=== PATIENT | male | born 1955 | race Caucasian/White ===

== ENCOUNTER → 2019-04-16 | Outpatient (CLI) | payer BC ==
--- NOTE | 2019-04-17 04:26 | XR ---
EXAMINATION TYPE: XR KUB DATE OF EXAM: 04/16/2019 CLINICAL DATA: 63-year-old male lower abdominal pain, R10.30, PHH COMPARISON: None FINDINGS: Lung bases are clear. Supine imaging limited for assessment of free intraperitoneal air. No dilated small bowel. Scattered air and stool is present throughout the colon extending distally in to the rectum with mild overall stone burden. Multiple pelvic phleboliths. Degenerative changes lumbar spine. IMPRESSION: Mild stool burden. Nonspecific, nonobstructive bowel gas pattern.
== END | disposition home or self-care (01) ==
LOC: RADXRMAIN 17:03
PROVIDERS: ATTEND Internal Medicine
DX: R10.30 Lower abdominal pain, unspecified (principal); R19.5 Other fecal abnormalities
CPT/HCPCS: 74018

== ENCOUNTER 2020-07-29 10:17 | Inpatient (IN) | payer BC, MEDICARE ==
[2020-07-29] MEDS ORDERED: SODIUM CHLORIDE 0.9% 1,000 ML IV STA (10:33)
[2020-07-29] MEDS ORDERED: PANTOPRAZOLE 40 MG/10 ML VIAL IVP STA (10:33)
[2020-07-29] MEDS ORDERED: SODIUM CHLORIDE 0.9% 500 ML 500 ML IV STA (10:33)
--- NOTE | 2020-07-29 10:36 | ED ---
General Adult HPI - General Chief complaint: GI Bleed Stated complaint: blood in stool Time Seen by Provider: 07/29/20 10:23 Source: patient, RN notes reviewed Mode of arrival: wheelchair Limitations: no limitations - History of Present Illness Initial comments: Patient is a pleasant 65-year-old male presenting to the emergency department with GI hemorrhage. Onset of symptoms was this morning Before 10 AM. Patient had an episode where he felt like he needs to have diarrhea and had a large bloody stool. Patient then had a second one less than a half an hour after that. Patient drove to emergency department and now is bleeding further. Patient feels lightheaded. Patient has mild nausea and mild abdominal cramping. No history of similar symptoms previously. No blood thinners. No significant alcohol use. - Related Data Home Medications Medication Instructions Recorded Confirmed No Known Home Medications 07/29/20 07/29/20 Allergies Allergy/AdvReac Type Severity Reaction Status Date / Time No Known Allergies Allergy Verified 07/29/20 11:08 Review of Systems ROS Statement: Those systems with pertinent positive or pertinent negative responses have been documented in the HPI. ROS Other: All systems not noted in ROS Statement are negative. Constitutional: Denies: fever Eyes: Denies: eye pain ENT: Denies: ear pain Respiratory: Denies: cough Cardiovascular: Denies: chest pain Endocrine: Denies: fatigue Gastrointestinal: Reports: as per HPI, hematochezia Genitourinary: Denies: dysuria Musculoskeletal: Denies: back pain Skin: Denies: rash Neurological: Denies: weakness Past Medical History Past Medical History: Osteoarthritis (OA) Additional Past Medical History / Comment(s): Hx. of abscessed molar. C/O of pain in neck & L hand. History of Any Multi-Drug Resistant Organisms: None Reported Additional Past Surgical History / Comment(s): [place] teeth. Past Anesthesia/Blood Transfusion Reactions: No Reported Reaction Past Psychological History: No Psychological Hx Reported Smoking Status: Current every day smoker Past Alcohol Use History: None Reported Past Drug Use History: Marijuana - Past Family History Mother Family Medical History: No Reported History General Exam Limitations: no limitations General appearance: alert Head exam: Present: normocephalic Eye exam: Present: normal appearance ENT exam: Present: normal oropharynx Neck exam: Present: normal inspection Respiratory exam: Present: normal lung sounds bilaterally Cardiovascular Exam: Present: regular rate, normal rhythm GI/Abdominal exam: Present: soft. Absent: distended, tenderness Rectal exam: Present: bloody stool, other (Large amount of bloody stool active from the rectum. No obvious hemorrhoids or fissure.) exam: Present: normal inspection Extremities exam: Present: normal inspection Neurological exam: Present: alert Psychiatric exam: Present: normal affect, normal mood Skin exam: Present: diaphoretic Course Vital Signs 07/29/20 07/29/20 07/29/20 10:21 10:41 11:03 Temperature 97.8 F Pulse Rate 51 L 73 54 L Respiratory 18 20 20 Rate Blood Pressure 111/68 115/82 134/83 O2 Sat by Pulse 100 99 100 Oximetry - Reevaluation(s) Reevaluation #1: 07/29/20 10:35 Dr. Wynn has been paged. 07/29/20 10:43 Case was discussed with Dr. Wynn who will come evaluate patient and after his current surgical case. Patient reevaluated. 07/29/20 11:42 Patient was again reevaluated. Case was also discussed with Dr. Reddy, who will admit for ICU. EKG Findings - EKG Comments: EKG Findings:: Sed rate 3 with a rate of 51. WV 122. QRS 84. QT 394. QTC 363. Normal axis. Normal QRS. Borderline lateral ST depression. Medical Decision Making - Lab Data Result diagrams: 07/29/20 10:40 07/29/20 10:40 Lab Results 07/29/20 07/29/20 07/29/20 Range/Units 10:40 10:40 10:40 WBC 12.2 H (3.8-10.6) k/uL RBC 4.72 (4.30-5.90) m/uL Hgb 15.3 (13.0-17.5) gm/dL Hct 44.6 (39.0-53.0) % MCV 94.6 (80.0-100.0) fL MCH 32.3 (25.0-35.0) pg MCHC 34.2 (31.0-37.0) g/dL RDW 13.2 (11.5-15.5) % Plt Count 364 (150-450) k/uL MPV 7.0 Neutrophils % 74 % Lymphocytes % 17 % Monocytes % 5 % Eosinophils % 2 % Basophils % 1 % Neutrophils # 9.0 H (1.3-7.7) k/uL Lymphocytes # 2.1 (1.0-4.8) k/uL Monocytes # 0.6 (0-1.0) k/uL Eosinophils # 0.2 (0-0.7) k/uL Basophils # 0.1 (0-0.2) k/uL PT 10.4 (9.0-12.0) sec INR 1.0 (<1.2) APTT 20.5 L (22.0-30.0) sec Sodium 135 L (137-145) mmol/L Potassium 4.3 (3.5-5.1) mmol/L Chloride 100 (98-107) mmol/L Carbon Dioxide 21 L (22-30) mmol/L Anion Gap 14 mmol/L BUN 13 (9-20) mg/dL Creatinine 1.00 (0.66-1.25) mg/dL Est GFR (CKD-EPI)AfAm >90 (>60 ml/min/1.73 sqM) Est GFR (CKD-EPI)NonAf 78 (>60 ml/min/1.73 sqM) Glucose 123 H (74-99) mg/dL Calcium 9.8 (8.4-10.2) mg/dL Total Bilirubin 0.8 (0.2-1.3) mg/dL AST 25 (17-59) U/L ALT 16 (4-49) U/L Alkaline Phosphatase 63 (38-126) U/L Total Protein 7.6 (6.3-8.2) g/dL Albumin 4.7 (3.5-5.0) g/dL Coronavirus (PCR) (Not Detectd) 07/29/20 Range/Units 10:40 WBC (3.8-10.6) k/uL RBC (4.30-5.90) m/uL Hgb (13.0-17.5) gm/dL Hct (39.0-53.0) % MCV (80.0-100.0) fL MCH (25.0-35.0) pg MCHC (31.0-37.0) g/dL RDW (11.5-15.5) % Plt Count (150-450) k/uL MPV Neutrophils % % Lymphocytes % % Monocytes % % Eosinophils % % Basophils % % Neutrophils # (1.3-7.7) k/uL Lymphocytes # (1.0-4.8) k/uL Monocytes # (0-1.0) k/uL Eosinophils # (0-0.7) k/uL Basophils # (0-0.2) k/uL PT (9.0-12.0) sec INR (<1.2) APTT (22.0-30.0) sec Sodium (137-145) mmol/L Potassium (3.5-5.1) mmol/L Chloride (98-107) mmol/L Carbon Dioxide (22-30) mmol/L Anion Gap mmol/L BUN (9-20) mg/dL Creatinine (0.66-1.25) mg/dL Est GFR (CKD-EPI)AfAm (>60 ml/min/1.73 sqM) Est GFR (CKD-EPI)NonAf (>60 ml/min/1.73 sqM) Glucose (74-99) mg/dL Calcium (8.4-10.2) mg/dL Total Bilirubin (0.2-1.3) mg/dL AST (17-59) U/L ALT (4-49) U/L Alkaline Phosphatase (38-126) U/L Total Protein (6.3-8.2) g/dL Albumin (3.5-5.0) g/dL Coronavirus (PCR) Not Detected (Not Detectd) Disposition Clinical Impression: Lower GI hemorrhage Disposition: ADMITTED IP TO THIS [facility] Condition: Serious Is patient prescribed a controlled substance at d/c from ED?: No Referrals: None,Stated [Primary Care Provider] - 1-2 days Decision Time: 11:43
[2020-07-29 10:51] LABS: Basophils # (A) 0.1 k/uL (0-0.2); Basophils % (A) 1 %; Eosinophils # (A) 0.2 k/uL (0-0.7); Eosinophils % (A) 2 %; HCT 44.6 % (39.0-53.0); HGB 15.3 gm/dL (13.0-17.5); Lymphocytes # (A) 2.1 k/uL (1.0-4.8); Lymphocytes % (A) 17 %; MCH 32.3 pg (25.0-35.0); MCHC 34.2 g/dL (31.0-37.0); MCV 94.6 fL (80.0-100.0); Monocytes # (A) 0.6 k/uL (0-1.0); Monocytes % (A) 5 %; Neutrophils % (A) 74 %; Platelet Count 364 k/uL (150-450); RBC 4.72 m/uL (4.30-5.90); RDW 13.2 % (11.5-15.5); WBC 12.2 k/uL (3.8-10.6)
[2020-07-29 11:02] LABS: ALT 16 U/L (4-49); AST 25 U/L (17-59); African American GFR (CKD) >90 (>60 ml/min/1.73 sqM); Albumin 4.7 g/dL (3.5-5.0); Alkaline Phosphatase 63 U/L (38-126); Anion Gap 14 mmol/L; Blood Urea Nitrogen 13 mg/dL (9-20); Calcium 9.8 mg/dL (8.4-10.2); Carbon Dioxide 21 mmol/L (22-30); Chloride 100 mmol/L (98-107); Glucose 123 mg/dL (74-99); Non-African American GFR(CKD) 78 (>60 ml/min/1.73 sqM); Potassium 4.3 mmol/L (3.5-5.1); Sodium 135 mmol/L (137-145); Total Bilirubin 0.8 mg/dL (0.2-1.3); Total Protein 7.6 g/dL (6.3-8.2)
[2020-07-29 11:08] LABS: Prothrombin Time 10.4 sec (9.0-12.0)
[2020-07-29] MEDS ORDERED: PROPOFOL 10 MG/ML 20 ML VIAL IV ONE (11:10)
[2020-07-29 11:11] LABS: Partial Thromboplastin Time 20.5 sec (22.0-30.0)
[2020-07-29] MEDS ORDERED: NALOXONE 0.4 MG/ML 1 ML VIAL IV PRN (11:43)
[2020-07-29] MEDS: SODIUM CHLORIDE 0.9% 1,000 ML IV SCH (12:28)
[2020-07-29 13:00] LABS: Glucose,Whole Blood 98 mg/dL (75-99)
[2020-07-29] MEDS ORDERED: PEG 3350-NA SULF,BICARB,CL/KCL 4,000 ML BOTTLE PO ONE (14:30)
[2020-07-29 14:46] LABS: HCT 37.4 % (39.0-53.0); HGB 12.9 gm/dL (13.0-17.5); MCH 32.7 pg (25.0-35.0); MCHC 34.4 g/dL (31.0-37.0); Mean Platelet Volume 6.8; Platelet Count 248 k/uL (150-450); RBC 3.94 m/uL (4.30-5.90); RDW 13.6 % (11.5-15.5); WBC 16.7 k/uL (3.8-10.6)
[2020-07-29 14:50] LABS: ALT 13 U/L (4-49); AST 23 U/L (17-59); African American GFR (CKD) >90 (>60 ml/min/1.73 sqM); Albumin 3.9 g/dL (3.5-5.0); Alkaline Phosphatase 54 U/L (38-126); Anion Gap 7 mmol/L; Blood Urea Nitrogen 12 mg/dL (9-20); Calcium 8.8 mg/dL (8.4-10.2); Carbon Dioxide 23 mmol/L (22-30); Chloride 105 mmol/L (98-107); Glucose 98 mg/dL (74-99); Non-African American GFR(CKD) >90 (>60 ml/min/1.73 sqM); Potassium 4.4 mmol/L (3.5-5.1); Sodium 135 mmol/L (137-145); Total Bilirubin 0.6 mg/dL (0.2-1.3); Total Protein 6.5 g/dL (6.3-8.2)
--- NOTE | 2020-07-29 15:02 | P.GSHP ---
History of Present Illness H&P Date: 07/29/20 CHIEF COMPLAINT: Blood in stool HISTORY OF PRESENT ILLNESS: This is a 65-year-old male with a known history of nicotine dependence. He presented to the emergency room with evidence of GI bleed. He reports symptoms started around 10 AM. He felt like he was going to have a episode of diarrhea but had a large bloody stool. Patient then had a second one less than a half an hour after that. He drove himself to the emergency department. He had another 2 episodes of bleeding in the ER measuring and about a cup in size each. He has been having some lightheadedness. He denies being on any blood thinners. Denies any alcohol use. No prior history of GI bleed. Patient did have some mild abdominal cramping. Vitals are stable PAST MEDICAL HISTORY: See list. PAST SURGICAL HISTORY: See list. MEDICATIONS: See list. ALLERGIES: See list. SOCIAL HISTORY: No illicit drug use. REVIEW OF SYSTEMS: CONSTITUTIONAL: Denies fever or chills. HEENT: Denies blurred vision, vision changes, or eye pain. Denies hemoptysis CARDIOVASCULAR: Denies chest pain or pressure. RESPIRATORY: No shortness of breath. GASTROINTESTINAL: See HPI for pertinent findings HEMATOLOGIC: Denies bleeding disorders. GENITOURINARY: Denies any blood in urine or increased urinary frequency. SKIN: Denies pruitis. Denies rash. PHYSICAL EXAM: VITAL SIGNS: Reviewed GENERAL: Well-developed in no acute distress. HEENT: No sclera icterus. Extraocular movements grossly intact. Moist buccal mucosa. Head is atraumatic, normocephalic. No nasal drainage. ABDOMEN: Soft. Nondistended nontender NEUROLOGIC: Alert and oriented. Cranial nerves II through XII grossly intact. LABORATORY DATA: WBC 12.2 hemoglobin 15.3 platelets 364 creatinine 1.00 LFTs normal Covid negative IMAGING: ASSESSMENT: 1. Acute GI bleed with bright red blood per rectum PLAN: -Patient scheduled for colonoscopy tomorrow with Dr. Wynn -Start GoLYTELY prep -Nothing by mouth after midnight -Continue to monitor for any further signs or symptoms of bleeding -Continue to monitor hemoglobin -Continue with IV fluids -Patient admitted to the ICU -Critical care service consulted -Continue IV Protonix Physician Blending Technician note has been reviewed by physician. Signing provider agrees with the documented findings, assessment, and plan of care. Past Medical History Past Medical History: Osteoarthritis (OA) Additional Past Medical History / Comment(s): Hx. of abscessed molar. C/O of pain in neck & L hand. right neck removal of flavio tumor 2016 History of Any Multi-Drug Resistant Organisms: None Reported Additional Past Surgical History / Comment(s): [place] teeth. Past Anesthesia/Blood Transfusion Reactions: No Reported Reaction Past Psychological History: No Psychological Hx Reported Smoking Status: Current every day smoker Past Alcohol Use History: None Reported Additional Past Alcohol Use History / Comment(s): Smokes 1PPD x 40 yrs. Past Drug Use History: Marijuana Additional Drug Use History / Comment(s): Occas. smokes marijuana on the weekends. - Past Family History Mother Family Medical History: No Reported History Medications and Allergies Home Medications Medication Instructions Recorded Confirmed Type No Known Home Medications 07/29/20 07/29/20 History Allergies Allergy/AdvReac Type Severity Reaction Status Date / Time No Known Allergies Allergy Verified 07/29/20 11:08 Surgical - Exam Vital Signs Temp Pulse Resp BP Pulse Ox 97.8 F 51 L 18 111/68 100 07/29/20 10:21 07/29/20 10:21 07/29/20 10:21 07/29/20 10:21 07/29/20 10:21 Results - Labs 07/29/20 14:20 07/29/20 14:20 Abnormal Lab Results - Last 24 Hours (Table) 07/29/20 07/29/20 07/29/20 Range/Units 10:30 10:40 10:40 WBC 12.2 H (3.8-10.6) k/uL RBC (4.30-5.90) m/uL Hgb (13.0-17.5) gm/dL Hct (39.0-53.0) % Neutrophils # 9.0 H (1.3-7.7) k/uL APTT 20.5 L (22.0-30.0) sec Sodium (137-145) mmol/L Carbon Dioxide (22-30) mmol/L Glucose (74-99) mg/dL Crossmatch See Detail 07/29/20 07/29/20 07/29/20 Range/Units 10:40 14:20 14:20 WBC 16.7 H (3.8-10.6) k/uL RBC 3.94 L (4.30-5.90) m/uL Hgb 12.9 L (13.0-17.5) gm/dL Hct 37.4 L (39.0-53.0) % Neutrophils # (1.3-7.7) k/uL APTT (22.0-30.0) sec Sodium 135 L 135 L (137-145) mmol/L Carbon Dioxide 21 L (22-30) mmol/L Glucose 123 H (74-99) mg/dL Crossmatch Diabetes panel 07/29/20 07/29/20 Range/Units 10:40 14:20 Sodium 135 L 135 L (137-145) mmol/L Potassium 4.3 4.4 (3.5-5.1) mmol/L Chloride 100 105 (98-107) mmol/L Carbon Dioxide 21 L 23 (22-30) mmol/L BUN 13 12 (9-20) mg/dL Creatinine 1.00 0.85 (0.66-1.25) mg/dL Glucose 123 H 98 (74-99) mg/dL Calcium 9.8 8.8 (8.4-10.2) mg/dL AST 25 23 (17-59) U/L ALT 16 13 (4-49) U/L Alkaline Phosphatase 63 54 (38-126) U/L Total Protein 7.6 6.5 (6.3-8.2) g/dL Albumin 4.7 3.9 (3.5-5.0) g/dL Calcium panel 07/29/20 07/29/20 Range/Units 10:40 14:20 Calcium 9.8 8.8 (8.4-10.2) mg/dL Albumin 4.7 3.9 (3.5-5.0) g/dL Pituitary panel 07/29/20 07/29/20 Range/Units 10:40 14:20 Sodium 135 L 135 L (137-145) mmol/L Potassium 4.3 4.4 (3.5-5.1) mmol/L Chloride 100 105 (98-107) mmol/L Carbon Dioxide 21 L 23 (22-30) mmol/L BUN 13 12 (9-20) mg/dL Creatinine 1.00 0.85 (0.66-1.25) mg/dL Glucose 123 H 98 (74-99) mg/dL Calcium 9.8 8.8 (8.4-10.2) mg/dL Adrenal panel 07/29/20 07/29/20 Range/Units 10:40 14:20 Sodium 135 L 135 L (137-145) mmol/L Potassium 4.3 4.4 (3.5-5.1) mmol/L Chloride 100 105 (98-107) mmol/L Carbon Dioxide 21 L 23 (22-30) mmol/L BUN 13 12 (9-20) mg/dL Creatinine 1.00 0.85 (0.66-1.25) mg/dL Glucose 123 H 98 (74-99) mg/dL Calcium 9.8 8.8 (8.4-10.2) mg/dL Total Bilirubin 0.8 0.6 (0.2-1.3) mg/dL AST 25 23 (17-59) U/L ALT 16 13 (4-49) U/L Alkaline Phosphatase 63 54 (38-126) U/L Total Protein 7.6 6.5 (6.3-8.2) g/dL Albumin 4.7 3.9 (3.5-5.0) g/dL
--- NOTE | 2020-07-29 15:25 | P.CNPUL ---
History of Present Illness Consult date: 07/29/20 Requesting physician: Fazal Wynn Reason for consult: other Chief complaint: Lower gastrointestinal bleed. History of present illness: 65-year-old male who really doesn't see a doctor, and never has had a colonoscopy. He presents to the emergency room on 07/29/2020 at 10:17 AM complaining of bright red bleeding per rectum. He woke up this morning with some abdominal discomfort and just a feeling like he may have to have a bowel movement or and/or have diarrhea. When he did have a bowel movement, he noticed bright red blood filling the toilet bowl. Apparently it happened a second time and at that point, he decided to come to the emergency department. He has never had this before. While having the bowel movements, he felt lightheaded and dizzy and even on the way into the hospital he felt that way as well. In the emergency department, he was evaluated by Dr. Jaciel Méndez. When I spoke to Dr. Méndez, the patient had a very large bright red bowel movement in the emergency department, maybe 3 cups or so bright red blood. He was also a little diaphoretic in the emergency department and a bit hypotensive. Hence, Dr. Méndez called me and asked for an ICU bed. I granted his wish. The patient was admitted to Dr. Wynn. He apparently is going to have a colonoscopy in the morning. The patient doesn't go to doctors. Doesn't have any major medical problems as far as he knows. He has never had a colonoscopy. He does smoke cigarettes and marijuana. He denies alcohol intake. He has no ALLERGIES. He takes no medications at home. Review of Systems REVIEW OF SYSTEMS: CONSTITUTIONAL: Lightheaded and dizzy, a bit weak. NEUROLOGIC: [ Negative.] HEENT: [ Negative.] CARDIAC: [Negative.] PULMONARY: [Negative.] GI: Bright red bleeding per rectum, abdominal cramping. : [Negative.] RHEUMATOLOGIC: [ Negative.] IMMUNOLOGIC: [ Negative.] ENDOCRINE: [Negative. ] DERMATOLOGIC: [Negative.] Past Medical History Past Medical History: Osteoarthritis (OA) Additional Past Medical History / Comment(s): Hx. of abscessed molar. C/O of pain in neck & L hand. right neck removal of flavio tumor 2016 History of Any Multi-Drug Resistant Organisms: None Reported Additional Past Surgical History / Comment(s): [place] teeth. Past Anesthesia/Blood Transfusion Reactions: No Reported Reaction Past Psychological History: No Psychological Hx Reported Smoking Status: Current every day smoker Past Alcohol Use History: None Reported Additional Past Alcohol Use History / Comment(s): Smokes 1PPD x 40 yrs. Past Drug Use History: Marijuana Additional Drug Use History / Comment(s): Occas. smokes marijuana on the weekends. - Past Family History Mother Family Medical History: No Reported History Medications and Allergies Home Medications Medication Instructions Recorded Confirmed Type No Known Home Medications 07/29/20 07/29/20 History Allergies Allergy/AdvReac Type Severity Reaction Status Date / Time No Known Allergies Allergy Verified 07/29/20 11:08 Physical Exam Osteopathic Statement: *. No significant issues noted on an osteopathic structural exam other than those noted in the History and Physical/Consult. Vitals: Vital Signs Temp Pulse Resp BP Pulse Ox 07/29/20 13:10 57 L 20 97 07/29/20 13:00 98.4 F 80 23 152/90 97 07/29/20 12:37 98.1 F 07/29/20 12:25 74 18 149/81 98 07/29/20 11:03 54 L 20 134/83 100 07/29/20 10:41 73 20 115/82 99 07/29/20 10:21 97.8 F 51 L 18 111/68 100 Intake and Output 07/29/20 07/29/20 07/29/20 06:59 14:59 22:59 Intake Total 260 Output Total 0 Balance 260 Intake: Intake, IV Titration 260 Amount Sodium Chloride 0.9% 1, 260 000 ml @ 130 mls/hr IV . Q7H42M [facility] Rx#:[id number] Output: Urine 0 Other: Weight 86.183 kg No acute distress, oriented 3. Room air saturation 97%. HEENT examination is grossly unremarkable. Mucous membranes are moist. No oral lesions. Neck supple. Full range of motion. No adenopathy thyromegaly or neck vein distention. Cardiovascular examination reveals regular rhythm rate. S1-S2 normal. No S3 or S4. No discernible murmur noted. Heart rate 80 bpm. Lungs reveal clear breath sounds. Her sounds are equal bilaterally. No adventitious lung sounds including wheezes rhonchi or crackles. Abdomen soft and bowel sounds are heard. No masses or tenderness. Extremities are intact. No cyanosis clubbing or edema. Skin is without rash or lesion. Neurologic examination is brief but nonfocal. Results - Laboratory Findings CBC and BMP: 07/29/20 14:20 07/29/20 14:20 PT/INR, D-dimer PT 10.4 sec (9.0-12.0) 07/29/20 10:40 INR 1.0 (<1.2) 07/29/20 10:40 Abnormal lab findings: Abnormal Labs 07/29/20 07/29/20 07/29/20 10:30 10:40 10:40 WBC 12.2 H RBC Hgb Hct Neutrophils # 9.0 H APTT 20.5 L Sodium Carbon Dioxide Glucose Crossmatch See Detail 07/29/20 07/29/20 07/29/20 10:40 14:20 14:20 WBC 16.7 H RBC 3.94 L Hgb 12.9 L Hct 37.4 L Neutrophils # APTT Sodium 135 L 135 L Carbon Dioxide 21 L Glucose 123 H Crossmatch Assessment and Plan Assessment: Suspected lower gastrointestinal bleed, which may relate to diverticular disease, or angiodysplasia. Other etiologies include colitis, hemmorhoids and possibly cancer. Acute mild anemia, secondary to GI bleed. History of chronic tobacco use and nicotine addiction. History of chronic marijuana use. No prior history of colonoscopy. Plan: Plan dated 07/29/2020. The patient was seen by the nurse practitioner who works for Dr Wynn. They're planning to do a colonoscopy in the morning. That should hopefully discover the source of the bleeding. We will keep him in the ICU overnight and check his hemoglobin and hematocrit every 6 hours. The patient should eat nothing by mouth. I also offered him a nicotine patch should he start craving tobacco. Interestingly, the patient does not see any doctors. He doesn't take any medications. The patient has never had a colonoscopy. We will continue to follow make recommendations. Time with Patient: Greater than 30
[2020-07-29] MEDS ORDERED: LIDOCAINE 1% (10MG/ML) FOR IV START INTRADERMA PRN (17:21)
[2020-07-29] MEDS ORDERED: LACTATED RINGERS 1,000 ML IV SCH (17:30)
[2020-07-29 20:08] LABS: HCT 39.3 % (39.0-53.0); HGB 13.3 gm/dL (13.0-17.5); Hypochromasia Slight; MCH 32.3 pg (25.0-35.0); MCHC 33.8 g/dL (31.0-37.0); MCV 95.6 fL (80.0-100.0); Mean Platelet Volume 6.7; Platelet Count 258 k/uL (150-450); RBC 4.11 m/uL (4.30-5.90); RDW 13.8 % (11.5-15.5); WBC 11.4 k/uL (3.8-10.6)
[2020-07-30] MEDS: SODIUM CHLORIDE 0.9% 1,000 ML IV SCH ×3 (04:30→11:02)
[2020-07-30 04:32] LABS: Basophils # (A) 0.1 k/uL (0-0.2); Basophils % (A) 1 %; Eosinophils # (A) 0.2 k/uL (0-0.7); Eosinophils % (A) 2 %; HCT 33.6 % (39.0-53.0); HGB 11.8 gm/dL (13.0-17.5); Lymphocytes # (A) 1.9 k/uL (1.0-4.8); Lymphocytes % (A) 21 %; MCH 32.6 pg (25.0-35.0); MCHC 35.2 g/dL (31.0-37.0); MCV 92.6 fL (80.0-100.0); Mean Platelet Volume 6.8; Monocytes # (A) 0.4 k/uL (0-1.0); Monocytes % (A) 5 %; Neutrophils # (A) 6.3 k/uL (1.3-7.7); Neutrophils % (A) 70 %; Platelet Count 243 k/uL (150-450); RBC 3.63 m/uL (4.30-5.90); RDW 12.2 % (11.5-15.5); WBC 8.9 k/uL (3.8-10.6)
[2020-07-30 04:45] LABS: African American GFR (CKD) >90 (>60 ml/min/1.73 sqM); Anion Gap 7 mmol/L; Blood Urea Nitrogen 11 mg/dL (9-20); Calcium 8.6 mg/dL (8.4-10.2); Carbon Dioxide 23 mmol/L (22-30); Chloride 106 mmol/L (98-107); Glucose 90 mg/dL (74-99); Non-African American GFR(CKD) >90 (>60 ml/min/1.73 sqM); Potassium 4.1 mmol/L (3.5-5.1); Sodium 136 mmol/L (137-145)
--- NOTE | 2020-07-30 07:59 | P.PN ---
Subjective Progress Note Date: 07/30/20 Principal diagnosis: GI bleed. 65-year-old male who really doesn't see a doctor, and never has had a colonoscopy. He presents to the emergency room on 07/29/2020 at 10:17 AM comp laining of bright red bleeding per rectum. He woke up this morning with some abdominal discomfort and just a feeling like he may have to have a bowel movement or and/or have diarrhea. When he did have a bowel movement, he noticed bright red blood filling the toilet bowl. Apparently it happened a second time and at that point, he decided to come to the emergency department. He has never had this before. While having the bowel movements, he felt lightheaded and dizzy and even on the way into the hospital he felt that way as well. In the emergency department, he was evaluated by Dr. Jaciel Méndez. When I spoke to Dr. Méndez, the patient had a very large bright red bowel movement in the emergency department, maybe 3 cups or so bright red blood. He was also a little diaphoretic in the emergency department and a bit hypotensive. Hence, Dr. Méndez called me and asked for an ICU bed. I granted his wish. The patient was admitted to Dr. Wynn. He apparently is going to have a colonoscopy in the morning. The patient doesn't go to doctors. Doesn't have any major medical problems as far as he knows. He has never had a colonoscopy. He does smoke cigarettes and marijuana. He denies alcohol intake. He has no ALLERGIES. He takes no medications at home. Progress note dated 07/30/2020. 65-year-old male, seen yesterday in consultation. He was admitted with a lower GI bleed. He had bright red bleeding per rectum. The patient has never seen a doctor in many years. He's never had a colonoscopy. He is scheduled for colonoscopy today. He's not receiving any supplemental oxygen. The patient's getting saline at 130 mL an hour. The patient is stable through the night. Martell presley's labs show a white count of 8.9, hemoglobin 11.8, hematocrit 33.6, and a platelet count of 283,000. Sodium is 136, potassium is 4.1, chlorides 106, CO2 23, anion gap 7, BUN 11, and creatinine 0.8. Coronavirus testing was negative. Objective - Vital Signs Vital signs: Vital Signs Temp 98.4 F 07/30/20 04:00 Pulse 64 07/30/20 07:00 Resp 15 07/30/20 07:00 BP 114/76 07/30/20 07:00 Pulse Ox 95 07/30/20 07:00 Intake & Output 07/29/20 07/30/20 07/30/20 18:59 06:59 18:59 Intake Total 910 1560 130 Output Total 570 0 Balance 340 1560 130 Weight 86.183 kg 98.1 kg Intake: Intake, IV Titration 910 1560 130 Amount Sodium Chloride 0.9% 1, 910 1560 130 000 ml @ 130 mls/hr IV . [id number] [facility] Rx#:[id number] Output: Urine 570 0 Other: Voiding Method Urinal Urinal # Voids 1 1 # Bowel Movements 1 1 2 - Exam No acute distress, oriented 3. Room air saturation 97%. HEENT examination is grossly unremarkable. Mucous membranes are moist. No oral lesions. Neck supple. Full range of motion. No adenopathy thyromegaly or neck vein distention. Cardiovascular examination reveals regular rhythm rate. S1-S2 normal. No S3 or S4. No discernible murmur noted. Heart rate 64 bpm. Lungs reveal clear breath sounds. Her sounds are equal bilaterally. No adventitious lung sounds including wheezes rhonchi or crackles. Abdomen soft and bowel sounds are heard. No masses or tenderness. Extremities are intact. No cyanosis clubbing or edema. Skin is without rash or lesion. Neurologic examination is brief but nonfocal. - Labs CBC & Chem 7: 07/30/20 03:45 07/30/20 03:45 Labs: Abnormal Lab Results - Last 24 Hours (Table) 07/29/20 07/29/20 07/29/20 Range/Units 10:30 10:40 10:40 WBC 12.2 H (3.8-10.6) k/uL RBC (4.30-5.90) m/uL Hgb (13.0-17.5) gm/dL Hct (39.0-53.0) % Neutrophils # 9.0 H (1.3-7.7) k/uL APTT 20.5 L (22.0-30.0) sec Sodium (137-145) mmol/L Carbon Dioxide (22-30) mmol/L Glucose (74-99) mg/dL Crossmatch See Detail 07/29/20 07/29/20 07/29/20 Range/Units 10:40 14:20 14:20 WBC 16.7 H (3.8-10.6) k/uL RBC 3.94 L (4.30-5.90) m/uL Hgb 12.9 L (13.0-17.5) gm/dL Hct 37.4 L (39.0-53.0) % Neutrophils # (1.3-7.7) k/uL APTT (22.0-30.0) sec Sodium 135 L 135 L (137-145) mmol/L Carbon Dioxide 21 L (22-30) mmol/L Glucose 123 H (74-99) mg/dL Crossmatch 07/29/20 07/30/20 07/30/20 Range/Units 19:48 03:45 03:45 WBC 11.4 H (3.8-10.6) k/uL RBC 4.11 L 3.63 L (4.30-5.90) m/uL Hgb 11.8 L (13.0-17.5) gm/dL Hct 33.6 L (39.0-53.0) % Neutrophils # (1.3-7.7) k/uL APTT (22.0-30.0) sec Sodium 136 L (137-145) mmol/L Carbon Dioxide (22-30) mmol/L Glucose (74-99) mg/dL Crossmatch Assessment and Plan Assessment: Suspected lower gastrointestinal bleed, which may relate to diverticular disease, or angiodysplasia. Other etiologies include colitis, hemmorhoids and possibly cancer. Acute mild anemia, secondary to GI bleed. History of chronic tobacco use and nicotine addiction. History of chronic marijuana use. No prior history of colonoscopy. Anticipated colonoscopy, 07/30/2020. Plan: Plan dated 07/29/2020. The patient was seen by the nurse practitioner who works for Dr Wynn. Jose roblesy're planning to do a colonoscopy in the morning. That should hopefully discover the source of the bleeding. We will keep him in the ICU overnight and check his hemoglobin and hematocrit every 6 hours. The patient should eat nothing by mouth. I also offered him a nicotine patch should he start craving tobacco. Interestingly, the patient does not see any doctors. He doesn't take any medications. The patient has never had a colonoscopy. We will continue to follow make recommendations. Plan dated 07/30/2020. The patient is to have a colonoscopy today. The patient's hemoglobin was 11.8. The patient has been stable overnight. He is nothing by mouth. He denies any abdominal pain or abdominal discomfort. Hemodynamically, the patient has been stable. We will continue to follow. Prognosis is guarded. Time with Patient: Less than 30
[2020-07-30] MEDS ORDERED: PANTOPRAZOLE 40 MG/10 ML VIAL IV SCH ×2 (09:00)
[2020-07-30] MEDS ORDERED: PEG 3350-NA SULF,BICARB,CL/KCL 4,000 ML BOTTLE PO ONE (12:30)
[2020-07-30 13:19] VITALS: BP 185/92; PULSE 75; RESP 16; TEMP 97.6
[2020-07-30] MEDS ORDERED: IV FLUID CONTINUATION 1,000 ML IV ONE ×2 (13:31)
--- NOTE | 2020-07-30 13:49 | P.OP ---
Date of Procedure: 07/30/20 Preoperative Diagnosis: A GI bleed Postoperative Diagnosis: Severe diverticulosis of sigmoid and left colon Procedure(s) Performed: Colonoscopy Anesthesia: MAC Surgeon: Fazal Wynn Pathology: none sent Condition: stable Disposition: PACU Description of Procedure: The patient's placed on the endoscopy table lateral position. He received IV sedation. Digital rectal exam was performed. There was a few external hemorrhoids. Flexible colonoscope was then placed patient anus passed throughout the entire colon. The ileocecal valve was visualized. The cecum, ascending and transverse colon appeared normal. In the descending colon was a few scattered diverticula. In the right colon there was severe diverticulosis. There is no evidence of any diverticular bleeding. Scope summer back the rectum and this appeared normal. Scope withdrawn for patient. This resume the patient's GI bleed due to diverticulosis.
== END 2020-07-30 17:50 | disposition home or self-care (01) | DRG 379 ==
LOC: EC 10:17 → 2SICU 11:43 → 5NMEDONC 12:04 → 2SICU 12:08 → 5NMEDONC 07-30 13:07
PROVIDERS: ADMIT Surgery; ATTEND Surgery
PROC: 0DJD8ZZ Inspection of Lower Intestinal Tract, Via Natural or Artificial Opening Endoscopic (ICD-10-PCS; principal; 2020-07-30 08:00)
DX: K57.31 Diverticulosis of large intestine without perforation or abscess with bleeding (principal); K64.4 Residual hemorrhoidal skin tags; F17.210 Nicotine dependence, cigarettes, uncomplicated; Z20.822 Contact with and (suspected) exposure to COVID-19; M19.90 Unspecified osteoarthritis, unspecified site; I95.9 Hypotension, unspecified; D50.0 Iron deficiency anemia secondary to blood loss (chronic); Z98.890 Other specified postprocedural states
CPT/HCPCS: 36415; 45378; 80048; 80053; 85025; 85027; 85610; 85730; 86850; 86900; 86901; 86920; 87635; 93005; 96361; 96374; 99285

== ENCOUNTER → 2021-09-07 | Outpatient (CLI) | payer MEDICARE ==
--- NOTE | 2021-09-07 10:51 | XR ---
EXAMINATION TYPE: XR lumbar spine 3V, XR Hip Complete 2 views LT DATE OF EXAM: 09/07/2021 Comparison: None Clinical History: 66-year-old male M16.9 OA Findings: Lumbar spine: 5 lumbar type vertebral bodies. Large bridging endplate spur along the right lateral aspect of L2-L3. Mild multilevel degenerative disc disease with disc space narrowing, disc bulging, endplate spondylo sis. More moderate degenerative disc disease L4-L5 and L5-S1. Trace grade 1 retrolisthesis L1-L2. Hyp ertrophic facet arthropathy mid to lower lumbar spine. Degenerative subarticular sclerosis at the SI joints. Left hip: Mild degenerative change of the left hip with spurring at the femoral head neck junction. Hip joint s paces are relatively maintained at this time. No acute fracture, subluxation, or dislocation. Impression: 1. Lumbar spine: Moderate multilevel degenerative disc disease especially lower lumbar spine. Hypertr ophic facet arthropathy is also present. Degenerative trace grade 1 retrolisthesis L1-L2. No vertebra l compression collapse. 2. Left hip: Mild left hip OA. No acute osseous abnormality seen. Mild degenerative change of the shahzad ateral SI joints incidentally noted.
== END | disposition home or self-care (01) ==
LOC: RADXRMAIN 09:19
PROVIDERS: ATTEND Internal Medicine
DX: M51.36 Other intervertebral disc degeneration, lumbar region (principal); M47.816 Spondylosis without myelopathy or radiculopathy, lumbar region; M43.16 Spondylolisthesis, lumbar region; M16.12 Unilateral primary osteoarthritis, left hip; M46.1 Sacroiliitis, not elsewhere classified
CPT/HCPCS: 72100; 73502

== ENCOUNTER 2022-10-14 08:48 | Emergency (ER) | payer MEDICARE ==
--- NOTE | 2022-10-14 09:15 | ED ---
General Adult HPI - General Chief complaint: Extremity Injury, Lower Stated complaint: Leg Pain sent by Time Seen by Provider: 10/14/22 08:55 Source: patient, RN notes reviewed, old records reviewed Mode of arrival: ambulatory Limitations: no limitations - History of Present Illness Initial comments: This is a nontoxic-appearing 67-year-old male that presents to the emergency room ambulatory with complaints of intermittent left lower extremity pain. Patient states pain starts in his left groin and radiates down the leg. Sometimes lasting several hours. Patient states that he has had multiple tests including labs and imaging over the past year with no definitive diagnosis. Did see his primary care doctor yesterday who recommended he come to the emergency room to rule out DVT by ultrasound. Patient has a history of hypertension, osteoarthritis and is a daily smoker. -: year(s) (1) Location: left, lower extremity Radiation: distal Severity scale (1-10): 3 Quality: sharp Consistency: intermittent Worsens with: other (activity) Associated Symptoms: denies other symptoms Treatments Prior to Arrival: other (sent by PCP ) - Related Data Home Medications Medication Instructions Recorded Confirmed No Known Home Medications 07/29/20 07/29/20 Allergies Allergy/AdvReac Type Severity Reaction Status Date / Time No Known Allergies Allergy Verified 10/14/22 08:54 Review of Systems ROS Statement: Those systems with pertinent positive or pertinent negative responses have been documented in the HPI. ROS Other: All systems not noted in ROS Statement are negative. Past Medical History Past Medical History: Hyperlipidemia, Hypertension, Osteoarthritis (OA) Additional Past Medical History / Comment(s): Hx. of abscessed molar. C/O of pain in neck & L hand. right neck removal of flavio tumor 2016 History of Any Multi-Drug Resistant Organisms: None Reported Additional Past Surgical History / Comment(s): Barto teeth. Past Anesthesia/Blood Transfusion Reactions: No Reported Reaction Past Psychological History: No Psychological Hx Reported Smoking Status: Current every day smoker Past Alcohol Use History: None Reported Past Drug Use History: Marijuana - Past Family History Mother Family Medical History: No Reported History General Exam Limitations: no limitations General appearance: alert, in no apparent distress Head exam: Present: atraumatic Eye exam: Present: normal appearance. Absent: scleral icterus, conjunctival injection, periorbital swelling, periorbital tenderness Neck exam: Absent: meningismus Respiratory exam: Absent: respiratory distress, accessory muscle use Cardiovascular Exam: Present: regular rate GI/Abdominal exam: Present: soft. Absent: rigid Extremities exam: Present: full ROM, normal capillary refill. Absent: tenderness, pedal edema, calf tenderness Left Hip exam: Absent: tenderness, swelling, external rotation, internal rotation, shortening Upper Leg exam: Absent: tenderness, swelling Knee exam: Present: full ROM, full knee extension. Absent: tenderness, swelling, abrasion, laceration, ecchymosis, deformity, crepitus, dislocation, erythema, effusion Lower Leg exam: Present: full ROM. Absent: tenderness, swelling, erythema, palpable cord, Homans' sign Ankle exam: Present: full ROM. Absent: tenderness, swelling Foot/Toe exam: Present: normal inspection, full ROM. Absent: tenderness, swelling Neurovascular tendon exam: Present: no vascular compromise. Absent: pulse deficit, abnormal cap refill, extremity cold to touch, pallor, decreased fine/light touch, foot drop, significant pain with passive ROM of distal joint Neurological exam: Present: alert, oriented X3, normal gait Psychiatric exam: Present: normal affect, normal mood Skin exam: Present: warm, dry, normal color. Absent: cyanosis, diaphoretic, petechiae, pallor Course Vital Signs 10/14/22 10/14/22 08:52 10:27 Temperature 97.7 F 96.5 F L Pulse Rate 64 59 L Respiratory 20 18 Rate Blood Pressure 160/76 178/92 O2 Sat by Pulse 99 97 Oximetry Medical Decision Making - Medical Decision Making Patient sent by his primary care doctor for ultrasound to rule out DVT of the left leg. Patient states he's been having this pain intermittently for the past year . On physical exam there is no evidence of swelling. Pedal pulses are present bilaterally. Negative Homans sign. Neurovascularly intact. Patient had x-rays in August of last year of his left hip and lumbar spine showing mild left hip osteoarthritis with degenerative change bilateral SI joints. Moderate multilevel degenerative disc disease especially lower lumbar spine. Hypertrophic facet arthropathy is also present. Degenerative trace grade 1 retrolisthesis L1-L2. No vertebral compression collapse. On physical exam is no vascular compromise. Leg is pink warm and dry. No evidence of swelling. Sensation intact. Patient is ambulatory with steady gait. He denies any fevers. No trauma. Ultrasound today shows no DVT of the left lower extremity. We did discuss the possibility that this may be radiculopathy from his degenerative disc disease lumbar spine. Patient agreeable to discharge home to follow up with his primary care doctor for continuation of care. He was directed to quit smoking. Strict return parameters were discussed. Case discussed with Dr Méndez. Was pt. sent in by a medical professional or institution (GARRY Spencer, INFORMATION SYSTEMS COORDINATOR, urgent care, hospital, or snf...) When possible be specific @ -No Did you speak to anyone other than the patient for history (EMS, parent, family, police, friend...)? What history was obtained from this source @ -No Did you review nursing and triage notes (agree or disagree)? Why? @ -I reviewed and agree with nursing and triage notes Were old charts reviewed (outside hosp., previous admission, EMS record, old EKG, old radiological studies, urgent care reports/EKG's, snf records)? Report findings @ -yes as above Differential Diagnosis (chest pain, altered mental status, abdominal pain women, abdominal pain men, vaginal bleeding, weakness, fever, dyspnea, syncope, headache, dizziness, GI bleed, back pain, seizure, CVA, palpatations, mental health, musculoskeletal)? @ -DVT, intermittent claudication, radiculopathy, inguinal hernia EKG interpreted by me (3pts min.). @ -n/a X-rays interpreted by me (1pt min.). @ -None done CT interpreted by me (1pt min.). @ -None done U/S interpreted by me (1pt. min.). @ -no What testing was considered but not performed or refused? (CT, X-rays, U/S, labs)? Why? @ -None What meds were considered but not given or refused? Why? @ -None Did you discuss the management of the patient with other professionals (professionals i.e. GARRY Spencer, INFORMATION SYSTEMS COORDINATOR, lab, RT, psych nurse, social insurance specialist, duplicating machine operator, teacher, surface to air weapons officer, casework specialist)? Give summary @ -No Was smoking cessation discussed for >3mins.? @ -yes Was critical care preformed (if so, how long)? @ -No Were there social determinants of health that impacted care today? How? (Homelessness, low income, unemployed, alcoholism, drug addiction, transportation, low edu. Level, literacy, decrease access to med. care, nursing home, rehab)? @ -No Was there de-escalation of care discussed even if they declined (Discuss DNR or withdrawal of care, Hospice)? DNR status @ -No What co-morbidities impacted this encounter? (DM, HTN, Smoking, COPD, CAD, Cancer, CVA, ARF, Chemo, Hep., AIDS, mental health diagnosis, sleep apnea, morbid obesity)? @ -Hypertension, degenerative disc disease, osteoarthritis, smoking Was patient admitted / discharged? Hospital course, mention meds given and route, prescriptions, significant lab abnormalities, going to OR and other pertinent info. @ -Discharged Undiagnosed new problem with uncertain prognosis? @ -No Drug Therapy requiring intensive monitoring for toxicity (Heparin, Nitro, Insulin, Cardizem)? @ -No Were any procedures done? @ -No Diagnosis/symptom? @ -Chronic left leg pain Acute, or Chronic, or Acute on Chronic? @ -Chronic Uncomplicated (without systemic symptoms) or Complicated (systemic symptoms)? @ -Uncomplicated Side effects of treatment? @ -No Exacerbation, Progression, or Severe Exacerbation? @ -No Poses a threat to life or bodily function? How? (Chest pain, [place], [place], pneumonia, PE, COPD, DKA, ARF, appy, cholecystitis, CVA, Diverticulitis, Homicidal, Suicidal, threat to staff... and all critical care pts) @ -No Disposition Clinical Impression: Leg pain, left Disposition: HOME SELF-CARE Condition: Good Instructions (If sedation given, give patient instructions): How to Stop Smoking (ED) Additional Instructions: Follow-up with your primary care doctor within the next week. Stop smoking. Return with any new or concerning symptoms including discoloration of the leg, increased pain or swelling. Is patient prescribed a controlled substance at d/c from ED?: No Referrals: Dariel Izaguirre MD [Primary Care Provider] - 1-2 days Time of Disposition: 09:53
--- NOTE | 2022-10-14 09:49 | US ---
EXAMINATION TYPE: US venous doppler duplex LE LT DATE OF EXAM: 10/14/2022 9:43 AM COMPARISON: NONE CLINICAL INDICATION: Male, 67 years old with history of r/o dvt; Left groin pain that travels down th igh SIDE PERFORMED: Left TECHNIQUE: The lower extremity deep venous system is examined utilizing real time linear array sonog becka with graded compression, doppler sonography and color-flow sonography. VESSELS IMAGED: Common Femoral Vein Deep Femoral Vein Greater Saphenous Vein * Femoral Vein Popliteal Vein Small Saphenous Vein * Proximal Calf Veins (* superficial vessels) Grayscale, color doppler, spectral doppler imaging performed of the deep veins of the left lower extr emity. There is normal flow, compressibility, vascular waveforms. Left Leg: Appears negative for DVT IMPRESSION: No deep venous thrombosis of the left lower extremity.
[2022-10-14 10:29] VITALS: BP 178/92; PULSE 59; RESP 18; TEMP 96.5
== END 2022-10-14 10:29 | disposition home or self-care (01) ==
LOC: EC 08:48
DX: M79.605 Pain in left leg (principal); I10 Essential (primary) hypertension; F17.200 Nicotine dependence, unspecified, uncomplicated; F12.90 Cannabis use, unspecified, uncomplicated
CPT/HCPCS: 99284

== ENCOUNTER 2022-11-25 08:51 | Emergency (ER) | payer MEDICARE ==
[2022-11-25 09:00] VITALS: BP 177/71; PULSE 68; RESP 18; TEMP 98
[2022-11-25] MEDS ORDERED: SODIUM CHLORIDE 0.9% 1,000 ML IV STA (09:23)
--- NOTE | 2022-11-25 09:37 | ED ---
General Adult HPI - General Chief complaint: Recheck/Abnormal Lab/Rx Stated complaint: Recheck Time Seen by Provider: 11/25/22 09:02 Source: patient, RN notes reviewed, old records reviewed Mode of arrival: ambulatory Limitations: no limitations - History of Present Illness Initial comments: 7-year-old male with past medical history significant for PAT presenting to the ED today with chief complaint of left groin pain. Patient states that this has been ongoing for the past year and half. That pain is constant in nature and waxing and waning in severity. No alleviating or exacerbating factors. [place] with this is subjective weakness of the left leg. He had an ultrasound on 10/14/22. This was negative for DVT. Presenting today with a prescription for CT angio abdomen aorta with runoff. - Related Data Home Medications Medication Instructions Recorded Confirmed No Known Home Medications 07/29/20 07/29/20 Allergies Allergy/AdvReac Type Severity Reaction Status Date / Time No Known Allergies Allergy Verified 11/25/22 09:00 Review of Systems ROS Statement: Those systems with pertinent positive or pertinent negative responses have been documented in the HPI. ROS Other: All systems not noted in ROS Statement are negative. Past Medical History Past Medical History: Hyperlipidemia, Hypertension, Osteoarthritis (OA) Additional Past Medical History / Comment(s): Hx. of abscessed molar. C/O of pain in neck & L hand. right neck removal of flavio tumor 2016 History of Any Multi-Drug Resistant Organisms: None Reported Additional Past Surgical History / Comment(s): [place] teeth. Past Anesthesia/Blood Transfusion Reactions: No Reported Reaction Past Psychological History: No Psychological Hx Reported Smoking Status: Current every day smoker Past Alcohol Use History: None Reported Past Drug Use History: Marijuana - Past Family History Mother Family Medical History: No Reported History General Exam Limitations: no limitations General appearance: alert, in no apparent distress Head exam: Present: atraumatic, normocephalic Eye exam: Present: normal appearance Neck exam: Present: normal inspection Respiratory exam: Present: normal lung sounds bilaterally Cardiovascular Exam: Present: regular rate GI/Abdominal exam: Present: soft exam: Present: other (No tenderness to palpation in the left groin, no warmth, erythema, edema, or crepitus.) Neurological exam: Present: alert, oriented X3 Psychiatric exam: Present: normal affect, normal mood Skin exam: Present: warm, dry Course Vital Signs 11/25/22 08:56 Temperature 98 F Pulse Rate 68 Respiratory 18 Rate Blood Pressure 177/71 O2 Sat by Pulse 99 Oximetry - Reevaluation(s) Reevaluation #1: 11/25/22 10:20 10:10 patient upset. States that he does not know why he is getting IV fluids and why he is getting labs drawn. Thoroughly explained the reason as to why patient was having labs drawn and receive IV fluids. Despite this, patient states that he would like to leave. Discussed risks versus benefits of continuing/abstaining from treatment including and up to . Patient verbalized understanding. 11/25/22 10:32 Medical Decision Making - Medical Decision Making Was pt. sent in by a medical professional or institution (, [facility], [facility] PRESS OPERATOR, urgent care, hospital, or senior care...) When possible be specific @ -Dr. Izaguirre Did you speak to anyone other than the patient for history (EMS, parent, family, police, friend...)? What history was obtained from this source @ -No Did you review nursing and triage notes (agree or disagree)? Why? @ -I reviewed and agree with nursing and triage notes Were old charts reviewed (outside hosp., previous admission, EMS record, old EKG, old radiological studies, urgent care reports/EKG's, senior care records)? Report findings @ -Old charts reviewed showing entire unremarkable ultrasound the left groin Differential Diagnosis (chest pain, altered mental status, abdominal pain women, abdominal pain men, vaginal bleeding, weakness, fever, dyspnea, syncope, headache, dizziness, GI bleed, back pain, seizure, CVA, palpatations, mental health, musculoskeletal)? @ -not applicable EKG interpreted by me (3pts min.). @ -As above X-rays interpreted by me (1pt min.). @ -None done CT interpreted by me (1pt min.). @ -None done U/S interpreted by me (1pt. min.). @ -None done What testing was considered but not performed or refused? (CT, X-rays, U/S, labs)? Why? @ -CT angio abdomen with runoff What meds were considered but not given or refused? Why? @ -None Did you discuss the management of the patient with other professionals (professionals i.e. , PA, [employer] PRESS OPERATOR, lab, RT, psych nurse, long term care social worker, temporary help agency referral clerk, teacher, administrative officer, caseworker)? Give summary @ -No Was smoking cessation discussed for >3mins.? @ -No Was critical care preformed (if so, how long)? @ -No Were there social determinants of health that impacted care today? How? (Homelessness, low income, unemployed, alcoholism, drug addiction, transportation, low edu. Level, literacy, decrease access to med. care, penitentiary, rehab)? @ -No Was there de-escalation of care discussed even if they declined (Discuss DNR or withdrawal of care, Hospice)? DNR status @ -No What co-morbidities impacted this encounter? (DM, HTN, Smoking, COPD, CAD, Cancer, CVA, ARF, Chemo, Hep., AIDS, mental health diagnosis, sleep apnea, morbid obesity)? @ -Smoking Was patient admitted / discharged? Hospital course, mention meds given and route, prescriptions, significant lab abnormalities, going to OR and other pertinent info. @ -Patient became very upset. Not want to wait for completion of labs and received CT. Left AMA. Undiagnosed new problem with uncertain prognosis? @ -No Drug Therapy requiring intensive monitoring for toxicity (Heparin, Nitro, Insulin, Cardizem)? @ -No Were any procedures done? @ -No Diagnosis/symptom? @ -Left groin pain, PAD Acute, or Chronic, or Acute on Chronic? @ -Chronic Uncomplicated (without systemic symptoms) or Complicated (systemic symptoms)? @ -Uncomplicated Side effects of treatment? @ -No Exacerbation, Progression, or Severe Exacerbation? @ -No Poses a threat to life or bodily function? How? (Chest pain, [place], NH, pneumonia, PE, COPD, DKA, ARF, appy, cholecystitis, CVA, Diverticulitis, Homicidal, Suicidal, threat to staff... and all critical care pts) @ -No - Lab Data Result diagrams: 11/25/22 09:58 11/25/22 09:58 Lab Results 11/25/22 11/25/22 Range/Units 09:58 09:58 WBC 9.3 (3.8-10.6) k/uL RBC 4.33 (4.30-5.90) m/uL Hgb 14.1 (13.0-17.5) gm/dL Hct 40.4 (39.0-53.0) % MCV 93.4 (80.0-100.0) fL MCH 32.6 (25.0-35.0) pg MCHC 34.9 (31.0-37.0) g/dL RDW 12.5 (11.5-15.5) % Plt Count 281 (150-450) k/uL MPV 6.8 Neutrophils % 76 % Lymphocytes % 15 % Monocytes % 5 % Eosinophils % 2 % Basophils % 1 % Neutrophils # 7.0 (1.3-7.7) k/uL Lymphocytes # 1.4 (1.0-4.8) k/uL Monocytes # 0.4 (0-1.0) k/uL Eosinophils # 0.2 (0-0.7) k/uL Basophils # 0.0 (0-0.2) k/uL Sodium 133 L (137-145) mmol/L Potassium 4.4 (3.5-5.1) mmol/L Chloride 103 (98-107) mmol/L Carbon Dioxide 20 L (22-30) mmol/L Anion Gap 10 mmol/L BUN 18 (9-20) mg/dL Creatinine 0.98 (0.66-1.25) mg/dL Est GFR (CKD-EPI)AfAm >90 (>60 ml/min/1.73 sqM) Est GFR (CKD-EPI)NonAf 80 (>60 ml/min/1.73 sqM) Glucose 108 H (74-99) mg/dL Calcium 9.2 (8.4-10.2) mg/dL Total Bilirubin 0.7 (0.2-1.3) mg/dL AST 27 (17-59) U/L ALT 20 (4-49) U/L Alkaline Phosphatase 61 (38-126) U/L Total Protein 7.2 (6.3-8.2) g/dL Albumin 4.4 (3.5-5.0) g/dL Disposition Clinical Impression: Groin pain, chronic, left Disposition: LEFT AGAINST MEDICAL ADVICE Referrals: Dariel Izaguirre MD [Primary Care Provider] - 1-2 days Time of Disposition: 10:10
[2022-11-25 10:12] LABS: ALT 20 U/L (4-49); AST 27 U/L (17-59); African American GFR (CKD) >90 (>60 ml/min/1.73 sqM); Albumin 4.4 g/dL (3.5-5.0); Alkaline Phosphatase 61 U/L (38-126); Anion Gap 10 mmol/L; Blood Urea Nitrogen 18 mg/dL (9-20); Calcium 9.2 mg/dL (8.4-10.2); Carbon Dioxide 20 mmol/L (22-30); Chloride 103 mmol/L (98-107); Glucose 108 mg/dL (74-99); Non-African American GFR(CKD) 80 (>60 ml/min/1.73 sqM); Potassium 4.4 mmol/L (3.5-5.1); Sodium 133 mmol/L (137-145); Total Bilirubin 0.7 mg/dL (0.2-1.3); Total Protein 7.2 g/dL (6.3-8.2)
[2022-11-25 10:16] LABS: Basophils % (A) 1 %; Eosinophils # (A) 0.2 k/uL (0-0.7); Eosinophils % (A) 2 %; HCT 40.4 % (39.0-53.0); HGB 14.1 gm/dL (13.0-17.5); Lymphocytes # (A) 1.4 k/uL (1.0-4.8); Lymphocytes % (A) 15 %; MCH 32.6 pg (25.0-35.0); MCHC 34.9 g/dL (31.0-37.0); MCV 93.4 fL (80.0-100.0); Mean Platelet Volume 6.8; Monocytes # (A) 0.4 k/uL (0-1.0); Monocytes % (A) 5 %; Neutrophils % (A) 76 %; Platelet Count 281 k/uL (150-450); RBC 4.33 m/uL (4.30-5.90); RDW 12.5 % (11.5-15.5); WBC 9.3 k/uL (3.8-10.6)
== END 2022-11-25 10:23 | disposition left against medical advice (07) ==
LOC: EC 08:51
DX: G89.29 Other chronic pain (principal); R10.30 Lower abdominal pain, unspecified; I10 Essential (primary) hypertension; F17.200 Nicotine dependence, unspecified, uncomplicated; F12.90 Cannabis use, unspecified, uncomplicated; Z53.29 Procedure and treatment not carried out because of patient's decision for other reasons
CPT/HCPCS: 36415; 80053; 85025; 99284